=== PATIENT | female | born 1980 | race Caucasian/White ===

== ENCOUNTER 2016-09-06 20:47 | Emergency (ER) | payer OTHER ==
--- NOTE | 2016-09-16 07:29 | ER ---
ADMIT: 09/06/2016 RM/LOC: ER [facility] MR#: [id number] [id number] [place], [place] [id number] BEAN SCHROEDER [address] [place] [address] Emergency Room Report SEX: F AGE: 35 : 1980 DATE: 09/06/2016 HISTORY OF PRESENT ILLNESS: Yesterday, she had a laparoscopic surgery for endometriosis and is coming in today with shortness of breath, mainly in the right chest and upper abdomen. She says she smoked today, but it was painful. She does not have any fever, chills, nausea, or vomiting. She is afraid to take deep breath because of the pain. REVIEW OF SYSTEMS: Otherwise negative. She has some family at bedside. PAST MEDICAL HISTORY: Negative except for endometriosis. PAST SURGICAL HISTORY: She has had a T and A, appendectomy, cholecystectomy, , and ear nee surgery. MEDICATIONS: She is taking hydrocodone. ALLERGIES: NO ALLERGIES TO MEDICATIONS. PHYSICAL EXAMINATION: VITAL SIGNS: 115/72 blood pressure, heart rate is 69, respirations 20, temp 97.1, O2 saturation 97%. GENERAL: Moderately anxious. She says the hydrocodone that she is taking is not quite helping her. HEENT: Normal inspection. NECK: Supple. RESPIRATIONS: Not taking full breaths, but no wheezes, rales, or rhonchi. CHEST: Chest wall discomfort on right lower chest. BACK: Normal inspection. SKIN: Good color. EXTREMITIES: Nontender. NEURO: Appropriate. IMAGING: X-ray of chest reviewed by Dr. Scott reveals trapped air, free air secondary to surgery in the abdomen. The patient advised and prescription up 2 Percocets rather than hydro's for the night and a shot of Fentanyl for tonight. I encouraged to follow up within 24 hours with primary provider if the situation becomes bad. At a point that she is unable to take deep breath and feels very short of breath, she needs to return to the emergency room, encouraged very strongly not to smoke and may hydrate and rest for the night. EH Kapadia / Parish Scott MD / gianl JOB #: [id number] CC: Parish Scott MD, Attending Physician ADMIT: 09/06/2016 RM/LOC: [facility] MR#: [id number] [address] [id number] BEAN SCHROEDER [address] [place] [id number] Emergency Room Report SEX: F AGE: 35 : 1980 Vishal Tarango MD, Family Physician
== END 2016-09-06 23:08 | disposition home or self-care (01) ==
LOC: ER 20:47
DX: R09.1 Pleurisy (principal); Z98.890 Other specified postprocedural states; Z79.899 Other long term (current) drug therapy